=== PATIENT | female | born 1990 | race American Indian/Alaskan Native ===

== ENCOUNTER 2017-12-14 22:09 | Emergency (ER) | payer MEDICAID ==
[2017-12-14] MEDS ORDERED: Azithromycin 250 MG Tab ONE (22:45)
--- NOTE | 2017-12-15 10:39 | EDM.PDOC ---
ED HPI GENERAL MEDICAL PROBLEM - General Chief Complaint: General Stated Complaint: COUGH Time Seen by Provider: 12/14/17 22:55 Source of Information: Reports: Patient History Limitations: Reports: No Limitations - History of Present Illness INITIAL COMMENTS - FREE TEXT/NARRATIVE: This is a 27yo F here for cough that has been persistent for the past 2 weeks. Patient denies any fever, no chills, no shortness of breath, no diarrhea, no vomiting, no nausea, no other complaints. Denies sputum production. 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 ED EXAM, GENERAL - Physical Exam Exam: See Below Exam Limited By: No Limitations General Appearance: Alert, WD/WN, No Apparent Distress Eye Exam: Bilateral Eye: EOMI, PERRL Ears: Normal External Exam Nose: Normal Inspection Throat/Mouth: Normal Inspection, Normal Oropharynx Head: Atraumatic, Normocephalic Neck: Normal Inspection Respiratory/Chest: No Respiratory Distress, Normal Breath Sounds, Rhonchi Cardiovascular: Normal Peripheral Pulses, Regular Rate, Rhythm Course - Vital Signs Last Recorded V/S: Last Vital Signs Temp 35.9 C 12/14/17 22:45 Pulse 82 12/14/17 22:45 Resp 16 12/14/17 22:45 BP 117/77 12/14/17 22:45 Pulse Ox 100 12/14/17 22:45 Departure - Departure Time of Disposition: 23:15 Disposition: Home, Self-Care 01 Condition: Good Clinical Impression: Cough - Discharge Information Instructions: Acute Bronchitis, [id number], Azithromycin tablets Referrals: PCP,None [Primary Care Provider] - Forms: ED Department Discharge Additional Instructions: Begin taking provided Azithromycin as directed: 2 tablets by mouth tonight, then 1 tablet by mouth daily until all are gone. May also continue over the counter medications you have been taken already. Be sure to drink plenty of fluids (water). Diet and activity as tolerated. Should symptoms continue for 1 week, or worsen, return to be seen. Follow up in clinic as needed. Call with any questions. - Problem List Review Problem List Initiated/Reviewed/Updated: Yes - Assessment/Plan Plan: Counseled on supportive care and measures. Discussed f/u in clinic or ER as needed if symptoms progress and worsen. Discussed follow up chest xray as needed if symptoms persist. F/u until resolution.
== END 2017-12-14 23:12 | disposition home or self-care (01) ==
LOC: LB.ED 22:09
DX: R05 Cough (principal); F17.210 Nicotine dependence, cigarettes, uncomplicated
CPT/HCPCS: 99283; A9270

== ENCOUNTER 2018-06-27 13:55 | Emergency (ER) | payer MEDICAID ==
--- NOTE | 2018-06-27 14:21 | EDM.PDOC ---
ED HPI GENERAL MEDICAL PROBLEM - General Chief Complaint: General Stated Complaint: cough Time Seen by Provider: 06/27/18 14:00 Source of Information: Reports: Patient History Limitations: Reports: No Limitations - History of Present Illness INITIAL COMMENTS - FREE TEXT/NARRATIVE: According to patient she has been having cough for about 8 days now. Cough is intermittent and present all day and night. Sputum is greenish yellow and copious. No fever or chills. No shortness of breath or wheezing asso with it. Cough has been getting worse over the past week. Duration: Week(s): (1) Severity: Moderate Improves with: Reports: None Worsens with: Reports: None Associated Symptoms: Reports: Cough. 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 Denies: Shortness of Breath, Wheezing, Pleuritic Chest Pain Cardiovascular: Denies: Chest Pain, Lightheadedness GI/Abdominal: Denies: Abdominal Pain, Diarrhea, Nausea, Vomiting : Denies: Dysuria, Flank Pain Musculoskeletal: Denies: Joint Pain, Joint Swelling Skin: Denies: Bruising, Pruritis, Rash ED EXAM, GENERAL - Physical Exam Exam: See Below Exam Limited By: No Limitations General Appearance: Alert, WD/WN, No Apparent Distress Eye Exam: Bilateral Eye: EOMI, PERRL Ears: Normal External Exam, Normal Canal, Hearing Grossly Normal, Normal TMs Nose: Normal Inspection, Normal Mucosa, No Blood Throat/Mouth: Normal Inspection, Normal Lips, Normal Teeth, Normal Gums, Normal Oropharynx, Normal Voice, No Airway Compromise Head: Atraumatic, Normocephalic Neck: Normal Inspection, Supple, Non-Tender, Full Range of Motion Respiratory/Chest: No Respiratory Distress, Lungs Clear, No Accessory Muscle Use , Chest Non-Tender, Decreased Breath Sounds (left base), Crackles (left base) Cardiovascular: Normal Peripheral Pulses, Regular Rate, Rhythm, No Edema, No Gallop, No JVD, No Murmur, No Rub Extremities: Normal Inspection, Normal Range of Motion, Non-Tender, Normal Capillary Refill, No Pedal Edema Neurological: Alert, Oriented, CN II-XII Intact, Normal Cognition, Normal Gait, Normal Reflexes, No Motor/Sensory Deficits Skin Exam: Warm, Intact Course - Vital Signs Text/Narrative:: Pt's CBC shows white count of 8.5 and Chest X-ray appears normal. Pt reassured that she has acute bronchitis.As her symptoms have been going on for 8 days now and getting worse, I have empirically started her on Augmentin 875mg BID for 10 days. Also sent home on [id number] pearls 3 times daily. steam inhalations 2-3 times daily. followup in clinic next week for recheck. - Orders/Labs/Meds Orders: Active Orders 24 hr Category Date Time Status Chest 2V [CR] Stat Exams 06/27/18 14:16 Taken Labs: Laboratory Tests 06/27/18 Range/Units 14:30 WBC 8.5 (4.0-11.0) K/uL RBC 4.30 (3.80-5.80) M/uL Hgb 13.7 (11.5-16.5) g/dL Hct 40.4 (37.0-47.0) % MCV 94 (76-96) fL MCH 31.9 (27.0-32.0) pg MCHC 33.9 (31.0-35.0) g/dL RDW 12.4 (11.0-16.0) % Plt Count 287 (150-500) K/uL MPV 9.5 (6.0-10.0) fL Neut % (Auto) 47.9 (45.0-70.0) % Lymph % (Auto) 39.5 (20.0-40.0) % [place] % (Auto) 8.1 (3.0-10.0) % Eos % (Auto) 4.0 (1.0-5.0) % Baso % (Auto) 0.5 (0.0-0.5) % Neut # (Auto) 4.07 (2.00-7.50) K/uL Lymph # (Auto) 3.36 (1.50-4.00) K/uL [place] # (Auto) 0.69 (0.20-0.80) K/uL Eos # (Auto) 0.34 (0.04-0.40) K/uL Baso # (Auto) 0.04 (0.02-0.10) K/uL Departure - Departure Time of Disposition: 14:30 Disposition: Home, Self-Care 01 Condition: Fair Clinical Impression: Bronchitis - Discharge Information Referrals: PCP,None [Primary Care Provider] - Forms: ED Department Discharge - Problem List & Annotations (1) Bronchitis SNOMED Code(s): 73628720 Code(s): J40 - BRONCHITIS, NOT SPECIFIED ACUTE OR CHRONIC Status: Acute - Problem List Review Problem List Initiated/Reviewed/Updated: Yes - My Orders Last 24 Hours: My Active Orders 06/27/18 14:16 Chest 2V [CR] Stat - Assessment/Plan Last 24 Hours: My Active Orders 06/27/18 14:16 Chest 2V [CR] Stat Assessment:: Bronchitis Plan: Pt's CBC shows white count of 8.5 and Chest X-ray appears normal. Pt reassured that she has acute bronchitis.As her symptoms have been going on for 8 days now and getting worse, I have empirically started her on Augmentin 875mg BID for 10 days. Also sent home on [id number] pearls 3 times daily. steam inhalations 2-3 times daily. followup in clinic next week for recheck.
[2018-06-27] MEDS ORDERED: Amoxicillin 250 MG/5 ML Susp 150 ML Bottle ONE (15:00)
[2018-06-27] MEDS ORDERED: Benzonatate 100 MG Cap ONE (15:00)
--- NOTE | 2018-06-29 01:30 | CR ---
DATE OF SERVICE: 06/27/2018 CLINICAL DATA: Productive cough 1 wk. PA AND LATERAL CHEST: The heart size is normal. The lungs are clear. No evidence of acute intrathoracic disease. [id number] [facility]
== END 2018-06-27 15:10 | disposition home or self-care (01) ==
LOC: LB.ED 13:55
DX: J40 Bronchitis, not specified as acute or chronic (principal)
CPT/HCPCS: 36415; 71046; 85025; 99283; A9270-GY

== ENCOUNTER 2018-12-12 13:20 | Emergency (ER) | payer OTHER, MEDICAID ==
--- NOTE | 2018-12-12 13:50 | EDM.PDOC ---
ED HPI GENERAL MEDICAL PROBLEM - General Stated Complaint: SHOULDER INJURY Time Seen by Provider: 12/12/18 13:35 Source of Information: Reports: Patient History Limitations: Reports: No Limitations - History of Present Illness INITIAL COMMENTS - FREE TEXT/NARRATIVE: According to patient, she has been having pain in her left shoulder since last evening. She slipped on the ice and fell and landed on the left side. Pt claims she has been doing heat and cold to the shoulder.Pt claims when she woke up today she has been having more pain in the shoulder. Has been able to use her arm with some discomfort. No other injuries. 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 Denies: Joint Swelling Skin: Denies: Bruising, Pruritis, Rash Neurological: Denies: Dizziness, Headache ED EXAM, GENERAL - Physical Exam Exam: See Below Exam Limited By: No Limitations General Appearance: Alert, WD/WN, No Apparent Distress Eye Exam: Bilateral Eye: EOMI, PERRL Ears: Normal External Exam, Normal Canal, Hearing Grossly Normal, Normal TMs Ear Exam: Bilateral Ear: TM normal Nose: Normal Inspection, Normal Mucosa, No Blood Throat/Mouth: Normal Inspection, Normal Lips, Normal Teeth, Normal Gums, Normal Oropharynx, Normal Voice, No Airway Compromise Head: Atraumatic, Normocephalic Neck: Normal Inspection, Supple, Non-Tender, Full Range of Motion Respiratory/Chest: No Respiratory Distress, Lungs Clear, Normal Breath Sounds, No Accessory Muscle Use, Chest Non-Tender Cardiovascular: Normal Peripheral Pulses, Regular Rate, Rhythm, No Edema, No Gallop, No JVD, No Murmur, No Rub Extremities: Normal Inspection, Normal Range of Motion, No Pedal Edema, Normal Capillary Refill, Other (Left shoulder: There is no swelling or deformity of the shoulder. No bruissing noted. She does have good ROM of the shoulder and arm. Tender mildly over the anterior shoulder.) Neurological: Alert, Oriented Skin Exam: Warm, Intact Course - Vital Signs Text/Narrative:: Pt has mild strain to her right shoulder. Pt reassured. I have advised motrin 600mg 3 times daily. Alternated cold and heat 3-4 times daily. Avoid over use of the right shoulder. Followup with PCP on friday if symptoms worsen. Last Recorded V/S: Last Vital Signs Temp 98.8 F 12/12/18 13:36 Pulse 82 12/12/18 13:36 Resp 18 12/12/18 13:36 BP 120/78 12/12/18 13:36 Pulse Ox 100 12/12/18 13:36 Departure - Departure Time of Disposition: 14:00 Disposition: Home, Self-Care 01 Condition: Fair Clinical Impression: Left shoulder strain - Discharge Information *PRESCRIPTION DRUG MONITORING PROGRAM REVIEWED*: Not Applicable *COPY OF PRESCRIPTION DRUG MONITORING REPORT IN PATIENT FALGUNI: Not Applicable Instructions: Shoulder Sprain Forms: ED Department Discharge Additional Instructions: Take Motrin 800mg three times a day regularly. May alternate with 1,000mg of Tylenol. Alternate ice and heat for 10-15min every 4 hours. Take it easy for about 1 week. Don't over use your left shoulder. - Problem List & Annotations (1) Left shoulder strain SNOMED Code(s): 812659931 Code(s): S46.912A - STRAIN UNSP MUSC/FASC/TEND AT SHLDR/UP ARM, LEFT ARM, INIT Status: Acute - Problem List Review Problem List Initiated/Reviewed/Updated: Yes - Assessment/Plan Assessment:: left shoulder strain Plan: Pt has mild strain to her right shoulder. Pt reassured. I have advised motrin 600mg 3 times daily. Alternated cold and heat 3-4 times daily. Avoid over use of the right shoulder. Followup with PCP on friday if symptoms worsen.
== END 2018-12-12 13:48 | disposition home or self-care (01) ==
LOC: LB.ED 13:20
DX: S46.912A Strain of unspecified muscle, fascia and tendon at shoulder and upper arm level, left arm, initial encounter (principal); W00.0XXA Fall on same level due to ice and snow, initial encounter
CPT/HCPCS: 99283

== ENCOUNTER 2022-01-06 11:34 | Emergency (ER) | payer MEDICAID | END 2022-01-06 13:30 | disposition home or self-care (01) | LOC: LB.ED 11:34 | DX: M72.2 Plantar fascial fibromatosis (principal) | CPT/HCPCS: 99283 ==

== ENCOUNTER 2023-12-27 13:51 | Emergency (ER) | payer MEDICAID ==
[2023-12-27 13:57] VITALS: BP 125/86; PULSE 89
== END 2023-12-27 14:15 | disposition home or self-care (01) ==
LOC: LB.ED 13:51
DX: S01.512A Laceration without foreign body of oral cavity, initial encounter (principal); E66.9 Obesity, unspecified; F17.210 Nicotine dependence, cigarettes, uncomplicated; Z79.899 Other long term (current) drug therapy; Z90.49 Acquired absence of other specified parts of digestive tract; Z68.33 Body mass index [BMI] 33.0-33.9, adult; W26.8XXA Contact with other sharp object(s), not elsewhere classified, initial encounter
CPT/HCPCS: 99282

== ENCOUNTER 2024-12-27 08:05 | Emergency (ER) | payer MEDICAID ==
[2024-12-27 08:53] LABS: BASOPHILS ABSOLUTE AUTO 0.01 K/uL (0.02-0.10); BASOPHILS PERCENT AUTO 0.1 % (0.0-0.5); EOSINOPHILS ABSOLUTE AUTO 0.03 K/uL (0.04-0.40); EOSINOPHILS PERCENT AUTO 0.2 % (1.0-5.0); HEMATOCRIT 32.1 % (37.0-47.0); HEMOGLOBIN 10.8 g/dL (11.5-16.5); LYMPHOCYTES PERCENT AUTO 10.1 % (20.0-40.0); MEAN CORPUSCULAR HGB CONC 33.6 g/dL (31.0-35.0); MEAN CORPUSCULAR VOLUME 95 fL (76-96); MEAN PLATELET VOLUME 9.2 fL (6.0-10.0); MONOCYTES ABSOLUTE AUTO 0.54 K/uL (0.20-0.80); MONOCYTES PERCENT AUTO 3.6 % (3.0-10.0); NEUTROPHILS ABSOLUTE AUTO 12.76 K/uL (2.00-7.50); PLATELET COUNT,PLT 278 K/uL (150-500); RED BLOOD CELL COUNT 3.37 M/uL (3.80-5.80); RED CELL DISTRIBUTION WIDTH 12.8 % (11.0-16.0); WHITE BLOOD CELL COUNT,WBC 14.8 K/uL (4.0-11.0)
[2024-12-27] MEDS: Sodium Chloride 0.9% 1,000 ML IV ONE (09:03)
[2024-12-27] MEDS: Ondansetron 4 MG/2 ML SDV IVPUSH ONE (09:04)
[2024-12-27] MEDS: Acetaminophen 500 MG Tab PO ONE (09:15)
[2024-12-27 09:23] LABS: A/G RATIO 0.9 (0.8-2.0); ANION GAP 17.5 mmol/L (5.0-15.0); BILIRUBIN TOTAL 0.2 mg/dL (0.0-1.0); BUN/CREATININE RATIO 11.4 (6-25); CALCIUM 8.7 mg/dL (8.5-10.1); CARBON DIOXIDE,CO2 22.1 mmol/L (21.0-32.0); CREATININE 0.88 mg/dL (0.55-1.02); EST CRCL DRUG DOSING (CG) 85.12 mL/min; POTASSIUM,K 3.6 mmol/L (3.5-5.1); PROTEIN TOTAL,TP 6.4 g/dL (6.4-8.2)
[2024-12-27] MEDS: Metoclopramide 10 MG/2 ML SDV IV ONE (09:47)
[2024-12-27 10:04] LABS: APPEARANCE,URINE SLIGHTLY CLOUDY (CLEAR); BILIRUBIN,URINE NEGATIVE (NEGATIVE); COLOR,URINE YELLOW; GLUCOSE,URINE NEGATIVE (NEGATIVE); KETONES,URINE TRACE mg/dL (NEGATIVE); LEUKOCYTE ESTERASE,URINE NEGATIVE (NEGATIVE); NITRITE,URINE NEGATIVE (NEGATIVE); OCCULT BLOOD,URINE SMALL (NEGATIVE); PROTEIN,URINE 30 mg/dL (NEGATIVE); SQUAMOUS EPITHELIAL CELLS,UR FEW /HPF; UROBILINOGEN,URINE 0.2 E.U./dL (0.2-1.0); WBC,URINE 0-5 /HPF
[2024-12-27 10:05] LABS: BACTERIA,URINE FEW /HPF
[2024-12-27] MEDS: Acetaminophen/oxyCODONE 325-5 MG Tab PO PRN (10:49)
== END 2024-12-27 11:00 | disposition home or self-care (01) ==
LOC: LB.ED 08:05
DX: O26.832 Pregnancy related renal disease, second trimester (principal); O99.332 Smoking (tobacco) complicating pregnancy, second trimester; N20.0 Calculus of kidney; F17.210 Nicotine dependence, cigarettes, uncomplicated; Z3A.22 22 weeks gestation of pregnancy
CPT/HCPCS: 36415; 80053; 81001; 85025; 96361; 96374; 96375; 99284; A9270; J2405; J2765